=== PATIENT | female | born 1940 | race Caucasian/White ===

== ENCOUNTER → 2018-04-09 | Outpatient (CLI) | payer MEDICARE ==
--- NOTE | 2018-04-09 15:32 | RADIOLOGY REPORT (SQ) ---
EXAM DESCRIPTION: NM WHOLE BODY BONE SCAN COMPLETED DATE/TIME: 04/09/2018 3:04 pm REASON FOR STUDY: HYPERCALCEMIA E83.52 HYPERCALCEMIA COMPARISON: No available imaging studies for comparison. RADIONUCLIDE AND DOSE: 21.6 millicuries Tc99m MDP. The route of agent administration: Intravenous. ADDITIONAL DRUGS AND DOSES: None. TECHNIQUE: Routine delayed images at 3 hour post radionuclide injection acquired of the bony skeleto n including anterior and posterior whole-body projections and additional focused images as needed. LIMITATIONS: None. FINDINGS: BONES: Mild heterogeneity in the lumbar spine particularly evident on dorsal imaging. Lik kiki related to disc and facet degenerative disease. Mild activity in the knees, left greater than ri ght. Probably also degenerative. Subtle focal uptake in the lesser trochanter right hip. Nonspecif ic. Recommend correlation with symptoms and radiographs. KIDNEYS: Symmetric excretion without obstruction. OTHER: No other significant finding. IMPRESSION: As above. No overtly suspicious lesions. Generally degenerative changes, however there may be slight focal activity along the proximal right femur needing further evaluation. COMMENT: Quality measure 147: No available prior imaging studies for comparison TECHNICAL DOCUMENTATION: JOB ID: [id number] [employer]- All Rights Reserved Reading location - IP/workstation name: [email or web address]
== END ==
LOC: RAD 10:46
PROVIDERS: ATTEND Internal Medicine
DX: E83.52 Hypercalcemia (principal)
CPT/HCPCS: 78306; A9561; Q9969

== ENCOUNTER → 2018-04-15 | Outpatient (CLI) | payer MEDICARE ==
--- NOTE | 2018-04-15 14:09 | RADIOLOGY REPORT (SQ) ---
EXAM DESCRIPTION: MRI RT LOWER EXTREMITY COMBO COMPLETED DATE/TIME: 04/15/2018 1:54 pm REASON FOR STUDY: RIGHT HIP PAIN M25.551 PAIN IN RIGHT HIP COMPARISON: None. TECHNIQUE: Multiplanar fat and fluid sensitive sequences precontrast including T1, T2 fat saturated or STIR. Post contrast T1 fat saturated sequences after IV gadolinium administration. CONTRAST TYPE AND DOSE: 20 mL Dotarem. RENAL FUNCTION: GFR > 60. LIMITATIONS: Patient does have a right total hip replacement. Metal attenuating sequences were used . A heterogeneous fat saturation on the postcontrast T1 weighted images FINDINGS: Prior bone scan was reviewed. Patient has bilateral hip replacements. Mild increased upt gabriel is present along the right lesser trochanter region by bone scan. This could indicate prosthesis loosening. High quality plain films of the right hip are recommended to evaluate for any lucency ar ound the hardware which would suggest loosening. Today's MRI images demonstrate no bone marrow signal abnormalities along the lesser trochanter, right proximal femur. No marrow signal abnormalities right hemipelvis. No right hip joint effusion or iliopsoas bursa fluid collection. No trochanteric bursal fluid. Pelvic organs in the field of view are unremarkable. Limited view of the right SI joint and right half of the sacrum unremarkable. Post-contrast, no abnormal right hip joint or right hemipelvis/proximal femur contrast enhancement is seen. IMPRESSION: Bone scan demonstrated minimal increased uptake lesser trochanter right proximal femur. This could be seen in prosthesis loosening. Correlate with high quality plain films of the right hi p No marrow signal abnormalities in the right femur or right hemipelvis. No abnormal contrast enhancem ent TECHNICAL DOCUMENTATION: JOB ID: [id number] [employer]- All Rights Reserved Reading location - IP/workstation name: [email or web address]
== END ==
LOC: RAD 12:21
PROVIDERS: ATTEND Internal Medicine
DX: M25.551 Pain in right hip (principal)
CPT/HCPCS: 73720; A9576

== ENCOUNTER 2020-02-22 10:50 | Emergency (ER) | payer MEDICARE ==
[2020-02-22 11:04] VITALS: BP 155/95
--- NOTE | 2020-02-22 11:42 | ER Document Report ---
ED Extremity Problem, Upper - General Chief Complaint: Arm Pain Stated Complaint: ARM SWELLING/PAIN Time Seen by Provider: 02/22/20 11:24 Primary Care Provider: RICHARD CHEN MD [Primary Care Provider] - Follow up as needed Mode of Arrival: Wheelchair Information source: Patient Notes: 79-year-old female presented to ED for pain and swelling to the left hand and wrist from a fall. She standing she last landed on her left shoulder and hand. She does have macular degeneration and it caused her to miss a step. She states that caused her to stumble and fall. She is alert oriented respirations regular nonlabored speaking in full sentences. She does have multiple rings to both hands. She states she understands she should have taken the rings off of the h and that is swollen and injured. She has signed for removal of these rings. REVIEW OF SYSTEMS: CONSTITUTIONAL : Denies fever, chills, or sweats. Denies recent illness. EENT: Denies eye, ear, throat, or mouth pain or symptoms. Denies nasal or sinus congestion. CARDIOVASCULAR: Denies chest pain. RESPIRATORY: Denies cough, cold, or chest congestion. Denies shortness of breath, difficulty breathing, or wheezing. GASTROINTESTINAL: Denies abdominal pain. Denies nausea, vomiting, or diarrhea. Denies constipation. Last BM: GENITOURINARY: Denies difficulty urinating, painful urination, burning, frequency, or blood in urine. FEMALE GENITOURINARY: Denies vaginal bleeding, abnormal or irregular periods. LMP: MUSCULOSKELETAL: Denies neck or back pain or joint pain or swelling. SKIN: Bruising swelling pain and tenderness to the left wrist hand and shoulder HEMATOLOGIC : Denies easy bruising or bleeding. LYMPHATIC: Denies swollen, enlarged glands. NEUROLOGICAL: Denies altered mental status or loss of consciousness. Denies headache. Denies weakness or paralysis or loss of use of either side. Denies problems with gait or speech. Denies sensory or motor loss. PSYCHIATRIC: Denies anxiety or stress or depression. ALL OTHER SYSTEMS REVIEWED AND NEGATIVE. VITAL SIGNS: Within normal limits. GENERAL: No acute distress, non-toxic appearance. HEAD: Normal with no signs of head trauma. EYES: PERRLA, EOMI, conjunctiva normal, no discharge. EARS: Hearing grossly intact. NOSE: Normal. THROAT: Oropharynx is normal. NECK: Normal range of motion, no tenderness, supple, no lymphadenopathy, No adenopathy, no JVD. CHEST: Clear breath sounds bilaterally. No wheezes, rales, or rhonchi. CARDIAC: Regular rate and rhythm. S1 and S2, without murmurs, gallops, or rubs. VASCULAR: No Edema. Peripheral pulses normal and equal in all extremities. ABDOMEN: Normal and soft with no tenderness, no masses or pulsatile masses. GASTROINTESTINAL: Bowel sounds normal GENITOURINARY: Normal, No tenderness LYMPATHTIC: No lymphadenopathy noted. MUSCULOSKELETAL: Decreased range of motion to the left wrist. Bruising swelling tenderness to the right wrist and shoulder. Rings on multiple fingers with a swollen hand. Rings were needed to be removed from left hand due to swelling. Patient signed consent. NEUROLOGICAL: Alert and oriented x 3. No focal sensory or strength deficits. Speech normal. Follows commands appropriately. PSYCHIATRIC: Normal Affect, judgement and mood. SKIN: Normal appearance with no rashes or lesions. TRAVEL OUTSIDE OF THE [place] IN LAST 30 DAYS: No - HPI Patient complains to provider of: Left, Hand, Wrist, Shoulder Onset: This morning Recent injury: Yes Where: Home, Indoors Quality of pain: Achy, Sharp Severity of pain: Moderate Pain Level: 3 Context: Fall Exacerbated by: Movement, Exertion Relieved by: Rest, Positioning Similar symptoms previously: Yes Recently seen / treated by doctor: Yes - Related Data Allergies/Adverse Reactions: tramadol Allergy (Verified 02/22/20 11:29) Minosin Allergy (Uncoded 02/22/20 11:29) Past Medical History - General Information source: Patient - Social History Smoking Status: Never Smoker Cigarette use (# per day): No Chew tobacco use (# tins/day): No Smoking Education Provided: No Frequency of alcohol use: None Drug Abuse: None Family History: Reviewed & Not Pertinent Patient has suicidal ideation: No Patient has homicidal ideation: No - Past Medical History Cardiac Medical History: Reports: None Pulmonary Medical History: Reports: None EENT Medical History: Reports: Eyes - Macular degeneration Neurological Medical History: Reports: Hx Cerebrovascular Accident Endocrine Medical History: Reports: None Renal/ Medical History: Reports: None Malignancy Medical History: Reports: Hx Breast Cancer GI Medical History: Reports: None Musculoskeletal Medical History: Reports Hx Fibromyalgia Skin Medical History: Reports None Psychiatric Medical History: Reports: None Traumatic Medical History: Reports: None Infectious Medical History: Reports: None Past Surgical History: Reports: Hx Breast Surgery - Mastectomy, Hx Carotid Endarterectomy - Left, Hx Orthopedic Surgery - Hip replacement x2 knee replacement x2 - Immunizations Immunizations up to date: Yes Physical Exam - Vital signs Vitals: Temp Pulse Resp BP Pulse Ox 99.0 F 61 18 155/95 H 98 02/22/20 11:03 02/22/20 11:03 02/22/20 11:03 02/22/20 11:03 02/22/20 11:03 Course - Vital Signs Vital signs: Temp Pulse Resp BP Pulse Ox 99.0 F 61 18 155/95 H 98 02/22/20 11:03 02/22/20 11:03 02/22/20 11:03 02/22/20 11:03 02/22/20 11:03 Discharge - Discharge Referrals: RICHARD CHEN MD [Primary Care Provider] - Follow up as needed
--- NOTE | 2020-02-22 12:32 | ER Document Report ---
ED Medical Screen (RME) - General Chief Complaint: Fall Stated Complaint: ARM SWELLING/PAIN Time Seen by Provider: 02/22/20 11:24 Primary Care Provider: [facility] [Provider Group] - Follow up as needed RICHARD CHEN MD [ACTIVE STAFF] - Follow up as needed Mode of Arrival: Wheelchair Notes: 79-year-old female presented to ED for pain and swelling to the left hand and wrist from a fall. She standing she last landed on her left shoulder and hand. She does have macular degeneration and it caused her to miss a step. She states that caused her to stumble and fall. She is alert oriented respirations regular nonlabored speaking in full sentences. She does have multiple rings to both hands. She states she understands she should have taken the rings off of the [place] nd that is swollen and injured. She has signed for removal of these rings. REVIEW OF SYSTEMS: CONSTITUTIONAL : Denies fever, chills, or sweats. Denies recent illness. EENT: Denies eye, ear, throat, or mouth pain or symptoms. Denies nasal or sinus congestion. CARDIOVASCULAR: Denies chest pain. RESPIRATORY: Denies cough, cold, or chest congestion. Denies shortness of breath, difficulty breathing, or wheezing. GASTROINTESTINAL: Denies abdominal pain. Denies nausea, vomiting, or diarrhea. Denies constipation. Last BM: GENITOURINARY: Denies difficulty urinating, painful urination, burning, frequency, or blood in urine. FEMALE GENITOURINARY: Denies vaginal bleeding, abnormal or irregular periods. LMP: MUSCULOSKELETAL: Denies neck or back pain or joint pain or swelling. SKIN: Bruising swelling pain and tenderness to the left wrist hand and shoulder HEMATOLOGIC : Denies easy bruising or bleeding. LYMPHATIC: Denies swollen, enlarged glands. NEUROLOGICAL: Denies altered mental status or loss of consciousness. Denies headache. Denies weakness or paralysis or loss of use of either side. Denies problems with gait or speech. Denies sensory or motor loss. PSYCHIATRIC: Denies anxiety or stress or depression. ALL OTHER SYSTEMS REVIEWED AND NEGATIVE. VITAL SIGNS: Within normal limits. GENERAL: No acute distress, non-toxic appearance. HEAD: Normal with no signs of head trauma. EYES: PERRLA, EOMI, conjunctiva normal, no discharge. EARS: Hearing grossly intact. NOSE: Normal. THROAT: Oropharynx is normal. NECK: Normal range of motion, no tenderness, supple, no lymphadenopathy, No adenopathy, no JVD. CHEST: Clear breath sounds bilaterally. No wheezes, rales, or rhonchi. CARDIAC: Regular rate and rhythm. S1 and S2, without murmurs, gallops, or rubs. VASCULAR: No Edema. Peripheral pulses normal and equal in all extremities. ABDOMEN: Normal and soft with no tenderness, no masses or pulsatile masses. GASTROINTESTINAL: Bowel sounds normal GENITOURINARY: Normal, No tenderness LYMPATHTIC: No lymphadenopathy noted. MUSCULOSKELETAL: Decreased range of motion to the left wrist. Bruising swelling tenderness to the right wrist and shoulder. Rings on multiple fingers with a swollen hand. Rings were needed to be removed from left hand due to swelling. Patient signed consent. NEUROLOGICAL: Alert and oriented x 3. No focal sensory or strength deficits. Speech normal. Follows commands appropriately. PSYCHIATRIC: Normal Affect, judgement and mood. SKIN: Normal appearance with no rashes or lesions. TRAVEL OUTSIDE OF THE [place] IN LAST 30 DAYS: No - HPI Onset: This morning Onset/Duration: Persistent Quality of pain: Sharp Pain Level: 3 - Related Data Allergies/Adverse Reactions: tramadol Allergy (Verified 02/22/20 11:29) Minosin Allergy (Uncoded 02/22/20 11:29) Past Medical History - Social History Cigarette use (# per day): No Chew tobacco use (# tins/day): No Frequency of alcohol use: None Drug Abuse: None - Past Medical History Cardiac Medical History: Reports: None Pulmonary Medical History: Reports: None EENT Medical History: Reports: Eyes - Macular degeneration Neurological Medical History: Reports: Hx Cerebrovascular Accident Endocrine Medical History: Reports: None Renal/ Medical History: Reports: None Malignancy Medical History: Reports: Hx Breast Cancer GI Medical History: Reports: None Musculoskeltal Medical History: Reports Hx Fibromyalgia Skin Medical History: Reports None Psychiatric Medical History: Reports: None Traumatic Medical History: Reports: None Infectious Medical History: Reports: None Past Surgical History: Reports: Hx Breast Surgery - Mastectomy, Hx Carotid Endarterectomy - Left, Hx Orthopedic Surgery - Hip replacement x2 knee replacement x2 - Immunizations Immunizations up to date: Yes Physical Exam - Vital signs Vitals: Temp Pulse Resp BP Pulse Ox 99.0 F 61 18 155/95 H 98 02/22/20 11:03 08/24/20 11:03 02/22/20 11:03 02/22/20 11:03 02/22/20 11:03 Course - Vital Signs Vital signs: Temp Pulse Resp BP Pulse Ox 98.9 F 62 20 155/95 H 94 02/22/20 16:59 02/22/20 16:59 02/22/20 16:59 02/22/20 11:03 02/22/20 16:59 Doctor's Discharge - Discharge Clinical Impression: Fall, Abrasion of arm, left, Contusion of left hand, Contusion of left forearm Condition: Stable Disposition: HOME, SELF-CARE Instructions: Abrasions ([facility]), Acetaminophen, Contusion ([facility]), Tetanus Immunization Given ([facility]) Additional Instructions: Return immediately for any new or worsening symptoms Followup with your primary care provider, call tomorrow to make a followup appointment Follow-up with orthopedics for any persistent pain or problems Referrals: [facility] [Provider Group] - Follow up as needed RICHARD CHEN MD [ACTIVE STAFF] - Follow up as needed
--- NOTE | 2020-02-22 12:44 | RADIOLOGY REPORT (SQ) ---
EXAM DESCRIPTION: HAND LEFT 3 VIEWS IMAGES COMPLETED DATE/TIME: 02/22/2020 12:34 pm REASON FOR STUDY: FALL PAIN INJURY COMPARISON: None. EXAM PARAMETERS: NUMBER OF VIEWS: Three views. TECHNIQUE: AP, lateral and oblique radiographic images acquired of the left hand. LIMITATIONS: None. FINDINGS: MINERALIZATION: Decreased. BONES: No displaced fracture. No evidence of dislocation. Significant degenerative changes at the 1 st and 2nd carpometacarpal joint with joint space loss, osteophytosis and subchondral sclerosis. Sca ttered additional osteophytes at the interphalangeal joints. JOINTS: No effusions. SOFT TISSUES: Scattered punctate metallic densities overlie the superficial soft tissues between the 4th and 5th digits OTHER: No other significant finding. IMPRESSION: 1. No evidence of acute bony abnormality of the left hand. 2. Osteoarthritic changes with significant degenerative changes at the 1st and 2nd carpometacarpal j oint. 3. Scattered punctate metallic densities overlie the superficial soft tissues between the 4th and 5t h digits, possibly on patient's skin versus foreign bodies. Recommend correlation with direct visual ization. TECHNICAL DOCUMENTATION: JOB ID: [id number] 2010 [employer]- All Rights Reserved Reading location - IP/workstation name: [email or web address]
--- NOTE | 2020-02-22 12:47 | RADIOLOGY REPORT (SQ) ---
EXAM DESCRIPTION: WRIST LEFT 3 VIEWS IMAGES COMPLETED DATE/TIME: 02/22/2020 12:33 pm REASON FOR STUDY: FALL PAIN INJURY COMPARISON: None. NUMBER OF VIEWS: Three views. TECHNIQUE: AP, lateral, and oblique radiographic images acquired of the left wrist. LIMITATIONS: None. FINDINGS: MINERALIZATION: Decreased. BONES: No acute fracture dislocation. Significant degenerative change with joint space loss, subchon dral sclerosis and osteophytosis at the 1st and 2nd carpometacarpal joint. Additional degenerative c hanges at the radiocarpal joint. SOFT TISSUES: No soft tissue swelling. No foreign body. OTHER: No other significant finding. IMPRESSION: No evidence of acute bony abnormality of the left wrist. Significant osteoarthritic nerissa nges at the 1st and 2nd carpometacarpal joint. TECHNICAL DOCUMENTATION: JOB ID: [id number] 2010 [employer]- All Rights Reserved Reading location - IP/workstation name: [email or web address]
[2020-02-22] MEDS ORDERED: ACETAMINOPHEN 325 MG TABLET PO ONE (17:30)
[2020-02-22] MEDS ORDERED: DIPH/PERTUSS(ACELL)/TETANUS VAC/PF 0.5 ML SYR (>=10YO) IM ONE (17:30)
--- NOTE | 2020-02-22 17:39 | ER Document Report ---
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 Patient reports mechanical fall after missing a short step in her home. Patient reports falling on her left side. Patient denies any head injury or loss of consciousness. Patient complains of pain to the left hand and the distal left forearm. Associated Symptoms: Other - Left hand forearm injury Exacerbated by: Movement Relieved by: Denies Similar symptoms previously: Yes Recently seen / treated by doctor: No - ROS ROS below otherwise negative: Yes Systems Reviewed and Negative: Yes All other systems reviewed and negative - NEURO Neurology: DENIES: Headache, Weakness - CARDIOVASCULAR Cardiovascular: DENIES: Chest pain - GASTROINTESTINAL Gastrointestinal: DENIES: Nausea, Patient vomiting - MUSCULOSKELETAL Musculoskeletal: REPORTS: Extremity pain, Swelling - DERM Skin Color: Ecchymosis Skin Problems: Abrasion Past Medical History - General Information source: Patient - Social History Smoking Status: Never Smoker Cigarette use (# per day): No Chew tobacco use (# tins/day): No Frequency of alcohol use: None Drug Abuse: None Family History: Reviewed & Not Pertinent Patient has homicidal ideation: No - Past Medical History Cardiac Medical History: Reports: None Pulmonary Medical History: Reports: None EENT Medical History: Reports: Eyes - Macular degeneration Neurological Medical History: Reports: Hx Cerebrovascular Accident Endocrine Medical History: Reports: None Renal/ Medical History: Reports: None Malignancy Medical History: Reports: Hx Breast Cancer GI Medical History: Reports: None Musculoskeletal Medical History: Reports Hx Fibromyalgia Skin Medical History: Reports None Psychiatric Medical History: Reports: None Traumatic Medical History: Reports: None Infectious Medical History: Reports: None Past Surgical History: Reports: Hx Breast Surgery - Mastectomy, Hx Carotid Endarterectomy - Left, Hx Orthopedic Surgery - Hip replacement x2 knee replacement x2 - Immunizations Immunizations up to date: Yes Vertical Provider Document - CONSTITUTIONAL Agree With Documented VS: Yes Exam Limitations: No Limitations General Appearance: WD/WN, No Apparent Distress - INFECTION CONTROL TRAVEL OUTSIDE OF THE [place] IN LAST 30 DAYS: No - HEENT HEENT: Atraumatic, Normocephalic - NECK Neck: Normal Inspection - RESPIRATORY Respiratory: Breath Sounds Normal, No Respiratory Distress - CARDIOVASCULAR Cardiovascular: Regular Rate, Regular Rhythm Pulses: Normal: Radial - BACK Back: Normal Inspection - MUSCULOSKELETAL/EXTREMETIES Musculoskeletal/Extremeties: MAEW, Tender - Tenderness over the distal left fourth metacarpal with area of ecchymosis and swelling. Distal third of the lef t forearm with swelling and overlying abrasion, no deformity - NEURO Level of Consciousness: Awake, Alert, Appropriate Motor/Sensory: No Motor Deficit - DERM Integumentary: Warm, Dry Notes: Abrasion to the left hand and to distal left forearm Course - Re-evaluation Re-evalutation: 02/22/20 17:37 Patient with degenerative changes noted to hand on x-ray, no fracture to the forearm or the left hand. Patient with swelling about the left fourth finger, patient does have a ring on this finger although refuses to have the jewelry cut off at this time. Discussed with patient concern about increased swelling and potential circulation compromise to the finger. Patient states that she will go to her jeweler tomorrow and have it removed. Patient advised of x-ray findings, patient declines needing any immobilization at this time. - Vital Signs Vital signs: Temp Pulse Resp BP Pulse Ox 98.9 F 62 20 155/95 H 94 02/22/20 16:59 02/22/20 16:59 02/22/20 16:59 02/22/20 11:03 02/22/20 16:59 - Diagnostic Test Radiology reviewed: Image reviewed, Reports reviewed Discharge - Discharge Clinical Impression: Fall Qualifiers: Encounter type: initial encounter Qualified Code(s): W19.XXXA - Unspecified fall, initial encounter Abrasion of arm, left Qualifiers: Encounter type: initial encounter Qualified Code(s): S40.812A - Abrasion of left upper arm, initial encounter Contusion of left hand Qualifiers: Encounter type: initial encounter Qualified Code(s): S60.222A - Contusion of left hand, initial encounter Contusion of left forearm Qualifiers: Encounter type: initial encounter Qualified Code(s): S50.12XA - Contusion of left forearm, initial encounter Condition: Stable Disposition: HOME, SELF-CARE Instructions: Abrasions ([facility]), Acetaminophen, Contusion ([facility]), Tetanus Immunization Given ([facility]) Additional Instructions: Return immediately for any new or worsening symptoms Followup with your primary care provider, call tomorrow to make a followup appointment Follow-up with orthopedics for any persistent pain or problems Referrals: RICHARD CHEN MD [ACTIVE STAFF] - Follow up as needed [facility] [Provider Group] - Follow up as needed
== END 2020-02-22 17:59 | disposition home or self-care (01) ==
LOC: ER 10:50
DX: S60.222A Contusion of left hand, initial encounter (principal); S50.12XA Contusion of left forearm, initial encounter; S40.812A Abrasion of left upper arm, initial encounter; M79.642 Pain in left hand; M79.632 Pain in left forearm; M79.89 Other specified soft tissue disorders; W10.9XXA Fall (on) (from) unspecified stairs and steps, initial encounter
CPT/HCPCS: 99283; 73130; 73110; 90715; A9270